=== PATIENT | male | born 1990 | race Caucasian/White ===

== ENCOUNTER 2018-12-18 17:38 | Emergency (ER) | payer OTHER ==
[~2018-12-18] VITALS: Ht 175.3 cm; Wt 85.6 kg
[2018-12-18 17:38] VITALS: BP 137/81
[2018-12-18] MEDS ORDERED: OMEGCAP9 PO (17:46)
[2018-12-18] MEDS ORDERED: MULTCAP PO (17:46)
[2018-12-18] MEDS ORDERED: FLUORESCEIN OPHTH 1 MG STRIP OS ONE (18:30)
[2018-12-18] MEDS ORDERED: TETRACAINE 0.5% OPHTH SOLN 4ML OS ONE (18:30)
[2018-12-18] MEDS ORDERED: OCUF0.25 OS (18:44)
[2018-12-18] MEDS ORDERED: IBUPROFEN 800 MG TAB As Ordered ONE (19:12)
[2018-12-18] MEDS ORDERED: CIPROFLOXACIN 0.3% OPHTH SOLN 2.5ML OS ONE (19:15)
[2018-12-18] MEDS ORDERED: IBUPROFEN 800 MG TAB PO ONE (19:15)
== END 2018-12-18 19:26 | disposition home or self-care (01) ==
LOC: M ED 17:38
DX: S05.02XA Injury of conjunctiva and corneal abrasion without foreign body, left eye, initial encounter (principal); X58.XXXA Exposure to other specified factors, initial encounter; Y93.H9 Activity, other involving exterior property and land maintenance, building and construction